=== PATIENT | female | born 1980 | race Two or more races ===

== ENCOUNTER 2023-10-15 14:11 | Emergency (ER) | payer MEDICAID, OTHER ==
[~2023-10-15] VITALS: Ht 175.3 cm; Wt 76.7 kg
[2023-10-15 14:19] VITALS: TEMP 98.4
[2023-10-15 15:57] LABS: BASOPHILS # (AUTO) 0.1 K/uL (0.0-0.2); BASOPHILS % (AUTO) 1.1 % (0.0-2.0); EOSINOPHILS # (AUTO) 0.1 K/uL (0.0-0.7); HEMATOCRIT 41 % (33-45); HEMOGLOBIN 13.8 g/dL (11.5-14.8); LYMPHOCYTES # (AUTO) 1.5 K/uL (0.8-4.8); MEAN CORPUSCULAR HEMOGLOBIN 32 PG (26.0-33.0); MEAN CORPUSCULAR HGB CONC 34 g/dl (31.0-36.0); MEAN CORPUSCULAR VOLUME 95 fL (82-100); MONOCYTES # (AUTO) 0.4 K/uL (0.1-1.30); MONOCYTES % (AUTO) 5.1 % (2.0-12.0); NEUTROPHILS # (AUTO) 6.3 K/uL (1.8-8.9); NEUTROPHILS % (AUTO) 74.8 % (43.0-81.0); PLATELET COUNT (AUTO) 298 K/uL (150-450); RED BLOOD CELL COUNT(AUTO) 4.31 MIL/uL (4.0-5.2); RED CELL DISTRIBUTION WIDTH 12.8 % (11.5-15.0); WHITE BLOOD COUNT (AUTO) 8.4 K/uL (4.3-11.0)
[2023-10-15 16:12] LABS: CALCIUM, SERUM 8.9 mg/dL (8.5-10.1); CARBON DIOXIDE 22 mmol/L (21-32); CHLORIDE 103 mmol/L (98-107); CREATININE 0.6 mg/dL (0.6-1.3); GLUCOSE 103 mg/dL (74-106); INR 0.97 (0.91-1.10); POTASSIUM 3.1 mmol/L (3.5-5.1); PROTHROMBIN TIME 10.3 SECS (9.2-11.1); SODIUM SERUM 137 mmol/L (136-145); UREA NITROGEN, BLOOD 13 mg/dL (7-18)
[2023-10-15 16:18] LABS: ALANINE AMINOTRANSFERASE 28 U/L (12-78); ALBUMIN 3.2 g/dL (3.4-5.0); ALKALINE PHOSPHATASE 64 U/L (46-116); ASPARTATE AMINOTRANSFERASE 24 U/L (15-37); BILIRUBIN,DIRECT 0.1 mg/dL (0.0-0.2); BILIRUBIN,TOTAL 0.2 mg/dL (0.2-1.0); TOTAL PROTEIN, SERUM 7.4 g/dL (6.4-8.2)
[2023-10-15 16:25] LABS: MAGNESIUM 1.9 mg/dL (1.8-2.4)
[2023-10-15 16:26] LABS: THYROID STIMULATING HORMONE 5.413 uIU/mL (0.358-3.74)
[2023-10-15 16:39] VITALS: BP 120/83; O2SAT 100
[2023-10-15 19:01] LABS: BAND % (MANUAL) 2 % (0.0-5.0); LYMPHOCYTES % (MANUAL) 18 % (16-48); MONOCYTES % (MANUAL) 8 % (0-11.0); NEUTROPHILS % (MANUAL) 72 (42-76)
[2023-10-15 19:02] LABS: PLATELET ESTIMATE ADEQUATE
== END 2023-10-15 16:39 | disposition home or self-care (01) ==
LOC: ER 14:18
DX: G89.29 Other chronic pain (principal); R51.9 Headache, unspecified; E03.9 Hypothyroidism, unspecified; Z60.2 Problems related to living alone
CPT/HCPCS: 36415; 70450-TC; 80048-TC; 80076-TC; 83735-TC; 84439-TC; 84443-TC; 84484-TC; 85025-TC; 85730-TC

== ENCOUNTER 2024-01-22 18:44 | Emergency (ER) | payer MEDICAID ==
[~2024-01-22] VITALS: Ht 175.3 cm; Wt 79.4 kg
[2024-01-22 19:02] VITALS: TEMP 98.6
[2024-01-22 19:25] LABS: BASOPHILS % (AUTO) 0.6 % (0.0-2.0); EOSINOPHILS # (AUTO) 0.2 K/uL (0.0-0.7); EOSINOPHILS % (AUTO) 4.1 % (0.0-6.0); HEMATOCRIT 41 % (33-45); HEMOGLOBIN 13.6 g/dL (11.5-14.8); LYMPHOCYTES % (AUTO) 36.3 % (20.0-44.0); MEAN CORPUSCULAR HEMOGLOBIN 31 PG (26.0-33.0); MEAN CORPUSCULAR HGB CONC 33 g/dl (31.0-36.0); MEAN CORPUSCULAR VOLUME 95 fL (82-100); MONOCYTES # (AUTO) 0.5 K/uL (0.1-1.30); MONOCYTES % (AUTO) 9.2 % (2.0-12.0); NEUTROPHILS # (AUTO) 2.8 K/uL (1.8-8.9); NEUTROPHILS % (AUTO) 49.8 % (43.0-81.0); PLATELET COUNT (AUTO) 292 K/uL (150-450); RED BLOOD CELL COUNT(AUTO) 4.31 MIL/uL (4.0-5.2); RED CELL DISTRIBUTION WIDTH 12.8 % (11.5-15.0); WHITE BLOOD COUNT (AUTO) 5.5 K/uL (4.3-11.0)
[2024-01-22 19:33] LABS: CALCIUM, SERUM 8.5 mg/dL (8.5-10.1); CARBON DIOXIDE 21 mmol/L (21-32); CHLORIDE 104 mmol/L (98-107); CREATININE 0.7 mg/dL (0.6-1.3); GLUCOSE 110 mg/dL (74-106); SODIUM SERUM 136 mmol/L (136-145); UREA NITROGEN, BLOOD 9 mg/dL (7-18)
[2024-01-22 19:38] LABS: ALANINE AMINOTRANSFERASE 34 U/L (12-78); ALBUMIN 3.4 g/dL (3.4-5.0); ALCOHOL, BLOOD 79 mg/dL (0-10); ALKALINE PHOSPHATASE 65 U/L (46-116); ASPARTATE AMINOTRANSFERASE 32 U/L (15-37); BILIRUBIN,DIRECT 0.1 mg/dL (0.0-0.2); BILIRUBIN,TOTAL 0.2 mg/dL (0.2-1.0); TOTAL PROTEIN, SERUM 7.7 g/dL (6.4-8.2)
[2024-01-22 19:39] LABS: ACETAMINOPHEN <10 ug/ml (10-30); SALICYLATE 2.5 mg/dL (2.8-20.0)
[2024-01-22] MEDS ORDERED: LIDOCAINE 1%-EPI 1:100,000 20 ML VIAL ONE (19:56)
[2024-01-22 20:14] LABS: APPEARANCE,URINE Slightly Cloudy (CLEAR); BILIRUBIN,URINE SMALL (NEGATIVE); BLOOD, URINE Moderate Ery/uL (NEGATIVE); COLOR,URINE YELLOW (YELLOW); KETONES,URINE Trace mg/dL (NEGATIVE); LEUKOCYTE ESTERASE ,URINE Small (NEGATIVE); NITRITE, URINE Positive (NEGATIVE); PH,URINE 5.5 (5.0-8.0); PROTEIN,URINE 30 mg/dl (NEGATIVE); UGLUCOSE Negative (NEGATIVE); UROBILINOGEN,URINE 0.2 EU/dL (0.2)
[2024-01-22 20:25] LABS: ADD URINE CULTURE YES; BACTERIA,URINE Many /HPF (None Seen); TRICHOMONAS,URINE Few /HPF (None Seen); WBC,URINE 21-50 /HPF (0-3); YEAST,URINE Few /HPF (None Seen)
[2024-01-22 20:28] LABS: AMPHETAMINE, URINE NEGATIVE (NEGATIVE); BARBITURATE, URINE NEGATIVE (NEGATIVE); BENZODIAZEPINE, URINE NEGATIVE (NEGATIVE); OPIATE, URINE NEGATIVE (NEGATIVE); PHENCYCLIDINE SCREEN,URINE NEGATIVE (NEGATIVE)
[2024-01-22 20:29] LABS: CANNABINOID, URINE POSITIVE (NEGATIVE); COCCAINE, URINE POSITIVE (NEGATIVE)
[2024-01-22 21:00] VITALS: BP 112/64; O2SAT 95
[2024-01-25] MEDS ORDERED: SULF1TAB48 PO (12:23)
[2024-01-25] MEDS ORDERED: CEPH-570 PO (12:23)
== END 2024-01-22 22:55 | disposition home or self-care (01) ==
LOC: ER 18:48
DX: S61.512A Laceration without foreign body of left wrist, initial encounter (principal); F17.200 Nicotine dependence, unspecified, uncomplicated; Z60.2 Problems related to living alone; X78.1XXA Intentional self-harm by knife, initial encounter; Y93.89 Activity, other specified; Y92.89 Other specified places as the place of occurrence of the external cause; Y99.8 Other external cause status
CPT/HCPCS: 12001; 36415; 80048; 80076; 80143; 80307; 80320; 81001; 85025; 87086; 87426; 99285; J3490; G0480

== ENCOUNTER → 2024-01-25 | Emergency (ER) | payer MEDICAID ==
[~2024-01-25] VITALS: Ht 175.3 cm; Wt 72.6 kg
[~2024-01-25] MED LIST: ACETAMINOPHEN ES 500 MG TABLET ONE; CEPH-570 PO; SULF1TAB48 PO
[2024-01-25 12:16] VITALS: BP 124/84; TEMP 98.3; O2SAT 99
[2024-01-25] MEDS: ACETAMINOPHEN ES 500 MG TABLET PO ONE (12:31)
== END | disposition home or self-care (01) ==
LOC: ER 12:15
DX: S41.112D Laceration without foreign body of left upper arm, subsequent encounter (principal); B96.89 Other specified bacterial agents as the cause of diseases classified elsewhere; I10 Essential (primary) hypertension; E03.9 Hypothyroidism, unspecified; F41.9 Anxiety disorder, unspecified; F17.200 Nicotine dependence, unspecified, uncomplicated; Z60.2 Problems related to living alone; X58.XXXD Exposure to other specified factors, subsequent encounter
CPT/HCPCS: 99283; J7040

== ENCOUNTER 2024-09-20 13:41 | Emergency (ER) | payer MEDICAID, OTHER ==
[~2024-09-20] VITALS: Ht 175.3 cm; Wt 72.6 kg
[~2024-09-20 13:41] MED LIST changes: -ACETAMINOPHEN ES 500 MG TABLET ONE
[2024-09-20 14:30] VITALS: BP 135/87; TEMP 98.3; O2SAT 98
== END 2024-09-20 18:53 | disposition left against medical advice (07) ==
LOC: ER 13:45
DX: R25.3 Fasciculation (principal); Z53.21 Procedure and treatment not carried out due to patient leaving prior to being seen by health care provider